=== PATIENT | male | born 1985 | race Two or more races ===

== ENCOUNTER → 2024-08-28 | Outpatient (CLI) | payer OTHER ==
--- NOTE | 2024-08-29 09:48 | HMCIMG ---
EXAMINATION: ULTRASOUND OF THE ABDOMEN WITH COLOR DOPPLER. CLINICAL HISTORY: Pain in the right upper quadrant. COMPARISON: None. TECHNIQUE: Real-time grayscale ultrasound images of the abdomen. In addition, color Doppler is medically necessary to perform in order to evaluate vascularity and blood flow. FINDINGS: Liver: Normal in caliber, the right hepatic lobe measures 13.3 cm in the craniocaudal dimension. There is normal echogenicity of the hepatic parenchyma. There is no focal hepatic abnormality or intrahepatic biliary ductal dilatation. There is normal spectral Doppler of the main portal vein. Gallbladder: Within normal limits with normal wall thickness (0.29 cm). No hyperemia or pericholecystic free fluid. There are micro-calculi or sludge. Common bile duct is normal in caliber, measuring 0.37 cm. Spleen is normal in caliber and measures 10.4 x 3.8 x 3.9 cm in craniocaudal, AP, and transverse dimensions respectively. No focal lesions. Pancreas: Normal in caliber and echotexture. No calcification or dilated pancreatic duct. The kidneys are normal in caliber, the right kidney measures 9.2 x 4.2 x 4.2 cm and the left kidney measures 9.7 x 4.5 x 4.6 cm in craniocaudal, AP, and transverse dimensions respectively. There is normal renal cortical thickness, and cortical echogenicity. There is no renal calculus or hydronephrosis. There is a simple cortical cyst that measures 2.5 x 2.3 x 1.8 cm in the lower pole of the left kidney. Visualized aspects of the abdominal aorta and inferior vena cava are unremarkable. IMPRESSION: Micro-calculi or sludge in the gallbladder. Recommend follow-up ultrasound/MRCP. Left renal simple cortical cyst. /Hansa
== END | disposition home or self-care (01) ==
LOC: RAH 10:34 → EEVIPCON 11:00
PROVIDERS: ATTEND Family Medicine
DX: N28.1 Cyst of kidney, acquired (principal); R10.11 Right upper quadrant pain
CPT/HCPCS: 76700